=== PATIENT | female | born 1935 | race African-American/Black ===

== ENCOUNTER 2016-12-19 12:56 | Emergency (ER) | payer MEDICARE, OTHER ==
[~2016-12-19] VITALS: Ht 177.8 cm; Wt 127.0 kg
[~2016-12-19 12:56] MED LIST: ADVAIR INH; ALBU6.7H INH; AMLO10TA80 PO; AMOX500T2 PO; ASPI-1159 PO; ATROPINE SULFATE 1MG/10ML SYR ONE; CALCIUM CHLORIDE 1GM/10ML SYR IV ONE; CLOP75TA33 PO; DEXTROSE 50% WATER 50ML SYRINGE IV ONE; DIAZ10TA4 PO; EPINEPHRINE 0.1MG/ML (1:10,000) 10ML SYR ONE; GABA-531 PO; IBUP-1510 PO; INSU3INS6 SUBCUT; ISOS60TA4 PO; LOSA50TA20 PO; METF500T4 PO; METO50TA5 PO; MONT10TA24 PO; NAPR-679 PO; NYST15OI TP; PRED5TAB48 PO; SIMV40TA5 PO; SODIUM BICARBONATE 7.5% 0.9 MEQ/ML 50ML SYR IV ONE; TRAM50TA3 PO; [UNRECOGNIZED DRUG - CODE] PO
[2016-12-19 13:00] VITALS: BP 0/0
== END 2016-12-19 13:07 | disposition expired ==
LOC: ER 13:01
DX: I46.9 Cardiac arrest, cause unspecified (principal); E11.9 Type 2 diabetes mellitus without complications; I10 Essential (primary) hypertension; Z79.4 Long term (current) use of insulin; Z88.6 Allergy status to analgesic agent; Z79.82 Long term (current) use of aspirin; Z86.73 Personal history of transient ischemic attack (TIA), and cerebral infarction without residual deficits
CPT/HCPCS: 99285; J0171; J0461; J3490